=== PATIENT | female | born 1970 | race Two or more races ===

== ENCOUNTER 2024-11-07 08:16 | Emergency (ER) | payer MEDICAID, OTHER ==
[~2024-11-07] VITALS: Ht 157.5 cm; Wt 62.6 kg
[2024-11-07 08:26] VITALS: BP 153/66
[2024-11-07 08:42] VITALS: PULSE 111; RESP 22; TEMP 98.7; O2SAT 99
--- NOTE | 2024-11-07 09:07 | ED.PDOC ---
SOB-HPI HPI Comments 54-year-old female with a history of carpal tunnel of the right wrist presents with a chief complaint of generalized body aches, headaches, chills for the last two days. Not taking medications for the symptoms listed above. Takes 600 mg of gabapentin q.d. for her carpal tunnel. Denies fevers chills night sweats unintentional weight loss Denies persistent chest pain, shortness of breath, leg swelling Denies history of asthma nor any breathing conditions Denies history of pneumonia Denies recent international travel Chief Complaint: Flu like Time Seen by MD: 08:31 Reviewed notes: Nurses Notes, Medications, Allergies Information Source: Patient Mode of Arrival: Ambulatory Social History Lives In: Home All Other Systems: Reviewed and Negative (Per HPI) Physical Exam General Appearance: No Apparent Distress, Normal HEENT: Normal ENT Inspection, Pharynx Normal, TMs Normal Neck: Full Range of Motion, Non-Tender, Normal, Normal Inspection Respiratory: Chest Non-Tender, Lungs Clear, No Accessory Muscle Use, No Respiratory Distress, Normal Breath Sounds Cardiovascular: No Murmur, No Gallop, Regular Rate/Rhythm Breast Exam: Deferred Gastrointestinal: No Organomegaly, Non Tender, No Pulsatile Mass, Normal Bowel Sounds, Soft Genitalia: Deferred Pelvic: Deferred Rectal: Deferred Extremities: No calf tenderness, Normal capillary refill, Normal inspection, Normal range of motion, Non-tender, No pedal edema Musculoskeletal : Apperance: Normal Neurologic: Alert, No Motor Deficits, Normal Affect, Normal Mood, No Sensory Deficits Cerebellar Function: Normal Reflexes: Normal Skin: Dry, Normal Color, Warm Lymphatic: No Adenopathy Was a procedure done? Was a procedure done?: No Differential Dx Differential Diagnosis: Bronchitis X-Ray, Labs, Meds, VS Vital Signs Date Time Temp Pulse Resp B/P (MAP) Pulse Ox O2 Delivery O2 Flow Rate FiO2 11/07/24 08:42 111 22 99 Room Air 11/07/24 08:42 98.7 111 17 99 98.7 11/07/24 08:26 98.1 62 16 153/66 (95) 99 Lab Test 11/07/24 08:27 Range/Units Influenza Type A Antigen Negative Negative Influenza Type B Antigen Negative Negative SARS-CoV-2 Antigen (Rapid) Negative NEGATIVE X-Ray, Labs, Meds, VS Comment On presentation, the patient is afebrile and has stable vital signs. The patient is overall well appearing, non-toxic on exam. The patient's symptoms are consistent with a viral upper respiratory infection. Low suspicion for Acute Asthma or COPD Exacerbation, CHF exacerbation, PE, PTX, atypical ACS, Pneumonia, [facility], RPA, [place], Epiglottitis, or EBV. The patient did not have any focal lung findings, and therefore chest x-ray was not indicated during this visit Low suspicion for strep pharyngitis given physical exam findings and patient's presenting symptoms, therefore, rapid step was deferred No signs of meningism on exam. Overall, the patient is well-hydrated and non-toxic. Plan for symptomatic control for fever and pain as needed. The patient was able to tolerate p.o. intake in the ED. At this time, the patient is safe to discharge home. The exam findings and plan discussed. Will discharge home with PCP follow up and strict return precautions. Time of 1ST Reevaluation: 10:25 Reevaluation 1ST: Improved Patient Education/Counseling: Diagnosis, Treatment Family Education/Counseling: Diagnosis, Treatment Departure 1 Departure Time of Disposition: 10:27 Impression: Primary Impression: Viral syndrome Additional Impression: Carpal tunnel syndrome Qualified Codes: G56.00 - Carpal tunnel syndrome, unspecified upper limb Disposition: 01 HOME / SELF CARE / HOMELESS Condition: Stable e-Prescriptions Ibuprofen Micronized (Ibuprofen) 600 Mg Tab 600 MG PO Q8HP PRN for 7 Days, #21 TAB 0 Refills Prov: ARSENIO OGDEN NP 11/07/24 Azithromycin (Azithromycin) 250 Mg Tab 250 MG PO DAILY MDD 500 for 5 Days, #6 TAB 0 Refills 2 TABLETS ORALLY ON DAY ONE, THEN 1 TABLET ORALLY DAILY FOR 4 DAYS Prov: ARSENIO OGDEN NP 11/07/24 Methylprednisolone (Medrol Dosepak) 4 Mg Mat 4 MG PO UD for 7 Days, #21 TAB 0 Refills UAD Prov: ARSENIO OGDEN NP 11/07/24 Discharged With: Self Critical Care Note Critical Care Time?: No Stability Stability form required: No Heart Score Heart Score: Heart Score Response (Comments) Value History N/A 0 EKG N/A 0 Age N/A 0 Risk Factors N/A 0 Troponin N/A 0 Total 0 ARSENIO OGDEN NP Nov 07, 2024 09:07
[2024-11-07 10:19] LABS: Rapid Influenza A Negative (Negative); Rapid Influenza B Negative (Negative)
[2024-11-07 10:20] LABS: COVID19 ANTIGEN SOFIA FIA NEGATIVE (NEGATIVE)
[2024-11-07] MEDS ORDERED: AZIT-43 PO (10:29)
[2024-11-07] MEDS ORDERED: METH4PAK PO (10:29)
[2024-11-07] MEDS ORDERED: IBUP1TAB5 PO (10:29)
== END 2024-11-07 10:42 | disposition home or self-care (01) ==
LOC: ER 08:16 → EDSEX 08:16 → ER 10:42
DX: B34.9 Viral infection, unspecified (principal); G56.00 Carpal tunnel syndrome, unspecified upper limb; Z79.899 Other long term (current) drug therapy; Z20.822 Contact with and (suspected) exposure to COVID-19
CPT/HCPCS: 36415; 87426; 87804